=== PATIENT | female | born 1975 | race Caucasian/White ===

== ENCOUNTER 2019-03-04 06:27 | Day surgery (SDC) | payer OTHER ==
[2019-02-28 10:42] VITALS: BMI 23.0
[2019-03-04] MEDS ORDERED: BUPIVACAINE HCL/EPINEPHRINE/PF 30 ML VIAL IJ ONE (08:31)
[2019-03-04] MEDS ORDERED: EPINEPHrine 1:1,000 1 MG/1 ML - 30ML VIAL (INJECTION) ONE (08:31)
[2019-03-04] MEDS ORDERED: PROPOFOL 20 ML ONE (08:50)
[2019-03-04] MEDS ORDERED: MIDAZOLAM HCL 2 MG/2 ML SINGLE DOSE VIAL ONE (08:50)
[2019-03-04] MEDS ORDERED: ROPIVACAINE HCL 0.5% 30ML VIAL ONE (08:50)
--- NOTE | 2019-03-04 09:01 | HP ---
Admitting History and Physical - Admission History of Present Illness: The patient is a 43 yo female who presents today for Right shoulder surgery. She fell while ambulating and hit her shoulder/arm on a parked car. She complains of pain/limited movement to the shoulder which has become progressive. 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 No recent complaints of palpitations.). No: Deep Vein Thrombosis, HTN Pulmonary: Yes: Other (Quit smoking approx 1 year ago). No: Asthma, Bronchitis Gastrointestinal: Yes: Gastritis (in her 20's no longer takes omeprazole) Renal/: No: Hematuria, Renal Calculi ...LMP Comment: YANY ...: No Heme/Onc: No: Bleeding Disorder - Past Surgical History Past Surgical History: Yes: Hysterectomy - Smoking History Smoking history: Former smoker Have you smoked in the past 12 months: Yes If you are a former smoker, when did you quit?: 06/2018 - Alcohol/Substance Use Hx Alcohol Use: Yes (RARE) Home Medications - Allergies Allergies/Adverse Reactions: Allergies Allergy/AdvReac Type Severity Reaction Status Date / Time erythromycin base AdvReac Intermediate Nausea Verified 03/04/19 07:26 - Home Medications Home Medications: Ambulatory Orders Biotin/Calcium Carbonate [Biotin 800 Mcg Tablet] 1 each PO DAILY 02/28/19 Glucosa Johansen 2Kcl/Chondroitin Johansen [Glucosamine & Chondroitin Cap] 1 each PO DAILY 02/28/19 Magnesium 200 mg PO HS 02/28/19 Mv,Calcium,Min/Iron/Folic/Vitk [Essential Woman Tablet] 1 each PO DAILY Riboflavin (Vitamin B2) [Vitamin B-2] 100 mg PO DAILY 02/28/19 Acetaminophen [Tylenol -] 500 mg PO Q6H PRN 03/04/19 Review of Systems - Review of Systems Constitutional: denies: Chills, Fever Neck: reports: Tenderness (intermittent to posterior neck/shoulder). denies: Decreased ROM Cardiovascular: denies: Chest Pain, Palpitations, Shortness of Breath Respiratory: denies: Cough, SOB Gastrointestinal: denies: Abdominal Pain, Nausea Neurological: denies: Headache, Seizure Hematology/Lymphatic: denies: Easily Bruised, Excessive Bleeding Physical Examination Vital Signs: Vital Signs Temperature 98.0 F 08/02/19 07:21 Pulse Rate 78 03/04/19 07:21 Respiratory Rate 16 03/04/19 07:21 Blood Pressure 135/82 03/04/19 07:21 O2 Sat by Pulse Oximetry (%) 98 03/04/19 07:28 Constitutional: Yes: Well Nourished, Calm Eyes: Yes: Conjunctiva Clear. No: Sclera Icterus HENT: Yes: WNL, Atraumatic, Normocephalic Neck: Yes: WNL, Supple, Trachea Midline Cardiovascular: Yes: WNL, Regular Rate and Rhythm Respiratory: Yes: WNL, Regular, CTA Bilaterally Gastrointestinal: Yes: WNL, Soft. No: Tenderness Extremities: Yes: Other (Pain to lateral shoulder with ROM. Abbduction at 90 degress.). No: Calf Tenderness Edema: No Neurological: Yes: WNL, Alert, Oriented ...Motor Strength: WNL, LUE, LLE, RUE, RLE Psychiatric: Yes: WNL, Alert, Oriented Assessment/Plan A/p: 43 yo female who presented today for surgery to her Right shoulder/ arthroscopy She remains npo iv abx at time of surgery dvt PPX WITH scd/early ambulation Pain medicaitons/instruations as per Dr. Dumont
[2019-03-04] MEDS ORDERED: ceFAZolin SODIUM 1 GM VIAL ONE (09:51)
[2019-03-04] MEDS ORDERED: ONDANSETRON 4 MG/2 ML VIAL IVPUSH PRN (11:30)
[2019-03-04] MEDS ORDERED: PROMETHAZINE HCL 25 MG/1 ML VIAL IVPUSH PRN (11:30)
[2019-03-04] MEDS ORDERED: oxyCODONE HCL 5 MG TABLET PO PRN ×3 (11:30→11:31)
[2019-03-04] MEDS ORDERED: oxyCODONE HCL 10 MG SUSTAINED ACTING TABLET PO ONE (11:31)
--- NOTE | 2019-03-04 11:34 | OP ---
Operative Note - Note: Operative Date: 03/04/19 Pre-Operative Diagnosis: LEft frozen shoulder. Left rotator cuff tear Operation: LSA, RONEN, decompression, capsulotomy, RCR Post-Operative Diagnosis: Same as Pre-op Surgeon: Douglas Dumont Anesthesia: General Operative Report Dictated: Yes
--- NOTE | 2019-03-04 11:35 | DS ---
Physical Examination Vital Signs: Vital Signs Temperature 98.0 F 03/04/19 07:21 Pulse Rate 78 03/04/19 07:21 Respiratory Rate 16 03/04/19 07:21 Blood Pressure 135/82 03/04/19 07:21 O2 Sat by Pulse Oximetry (%) 98 03/04/19 07:28 Discharge Summary Reason For Visit: ROTATOR CUFF TEAR, BICEPS TENDINITIS RT SHOULDER Condition: Good - Instructions Diet, Activity, Other Instructions: Post Operative Instructions: Shoulder Arthroscopy Dr Douglas Dumont 1. Pain following a Shoulder Arthroscopy is variable and can be significant. Some patients will have more pain than others. You have been provided with a prescription for medication that contains a narcotic. You are not allowed to drive while on this medication. You should take Tylenol (Acetaminophen) when taking the pain medication ( it will NOT result in an overdose). Feel free to take medications such as Diclofenac in addition to the pain medicine if you do not have any problems with the NSAID class of medications. 2. Apply ice to the shoulder for 15 minutes every hour. You may continue this for as many days as necessary. 3. You may find sleeping on an incline (reclining chair) to be more comfortable for the first few days. 4. You may remove your sling when the arm is comfortable. You need to do the motion exercises three times each day. Please start your physical therapy next week. 5. You are not to use your arm to reach for anything, lift anything or carry anything until instructed otherwise. 6. You may remove the bandages in 48 hours. You may shower at that point. 7. Place band-aids on the sutures after your shower.Do not put any creams or lotions on the incision until after the sutures are removed. 8. Please call the office to schedule a visit to have your sutures removed. 9. If for any reason you believe you may have an infection or are concerned, please feel free to call me. I can be reached through our office number 24 hours a day. 10. Please call our office with any questions; we will review the surgical findings during your post-operative visit. Disposition: HOME - Home Medications Comprehensive Discharge Medication List: Ambulatory Orders Biotin/Calcium Carbonate [Biotin 800 Mcg Tablet] 1 each PO DAILY 02/28/19 Glucosa Johansen 2Kcl/Chondroitin Johansen [Glucosamine & Chondroitin Cap] 1 each PO DAILY 02/28/19 Magnesium 200 mg PO HS 02/28/19 Mv,Calcium,Min/Iron/Folic/Vitk [Essential Woman Tablet] 1 each PO DAILY Riboflavin (Vitamin B2) [Vitamin B-2] 100 mg PO DAILY 02/28/19 Acetaminophen [Tylenol -] 500 mg PO Q6H PRN 03/04/19
[2019-03-04 13:50] VITALS: TEMP 97.6
[2019-03-04 15:15] VITALS: BP 117/73; PULSE 83
--- NOTE | 2019-03-09 16:57 | PATH ---
Surgical Pathology Report Patient Name: DALLAS TINOCO Med. Rec. #: [id number] /Age/Gender: 1975 (Age: 43) / F Account: [id number] Location: [facility] Taken: 03/04/2019 Received: 03/04/2019 Reported: 03/09/2019 Physicians: Douglas Dumont M.D. Specimen(s) Received SHAVINGS RIGHT SHOULDER Clinical History Right rotator cuff repair, biceps tendinitis Final Diagnosis RIGHT SHOULDER SHAVINGS: FRAGMENTS OF SYNOVIAL TISSUE WITH FOCAL MILD ACUTE INFLAMMATION, FIBROSIS, AND REACTIVE CHANGE. SEPARATE CARTILAGINOUS TISSUE WITH DEGENERATIVE CHANGE. SEPARATE SKELETAL MUSCLE WITH NO SIGNIFICANT PATHOLOGIC CHANGE. Electronically Signed Antonieta Wilson M.D. Gross Description Received in formalin, labeled "shavings right shoulder," is a 2.8 x 2.8 x 0.3 cm. aggregate of garg-yellow soft tissue fragments. A account development representative portion is submitted in one cassette. 03/07/2019 saudi03/07/2019
--- NOTE | 2019-03-11 16:01 | SURG ---
Surgery Van Owner Operator Note Van Owner Operator: Catrina Shannon PA-C Date of Service: 03/04/19 Diagnosis: LEft frozen shoulder. Left rotator cuff tear Procedure: LSA, RONEN, decompression, capsulotomy, RCR I was present for the entirety of the operative procedure. For further detail, please refer to operative report. Visit type - Case Type Case Type: Scheduled - Emergency Emergency Visit: No - New patient This patient is new to me today: Yes Date on this admission: 03/04/19
== END 2019-03-04 14:00 | disposition home or self-care (01) ==
LOC: FASU 06:27
PROVIDERS: ATTEND Orthopaedic Surgery
PROC: 0RNK4ZZ Release Left Shoulder Joint, Percutaneous Endoscopic Approach (ICD-10-PCS; 2019-03-04)
PROC: 0RBK4ZZ Excision of Left Shoulder Joint, Percutaneous Endoscopic Approach (ICD-10-PCS; 2019-03-04)
PROC: 0RNKXZZ Release Left Shoulder Joint, External Approach (ICD-10-PCS; 2019-03-04)
PROC: 0LQ24ZZ Repair Left Shoulder Tendon, Percutaneous Endoscopic Approach (ICD-10-PCS; principal; 2019-03-04 10:15)
DX: M75.112 Incomplete rotator cuff tear or rupture of left shoulder, not specified as traumatic (principal); M75.02 Adhesive capsulitis of left shoulder
CPT/HCPCS: 88304-TC; 94760